=== PATIENT | female | born 2000 | race Caucasian/White ===

== ENCOUNTER 2018-02-17 15:19 | Emergency (ER) | payer OTHER ==
[2018-02-17 15:54] VITALS: BP 122/64
--- NOTE | 2018-02-17 16:13 | UC ---
Lower Extremity/Ankle HPI - HPI Summary HPI Summary: 17-year-old woman comes in with a complaint of left ankle pain. Pain started 2 months ago when she injured it. It did improve but then it has stayed persistent. Pain is worse with movement she is able to bear weight. Pain is better with rest. No prior surgery to that ankle. - History of Current Complaint Chief Complaint: UCLowerExtremity Stated Complaint: ANKLE INJURY Time Seen by Provider: 02/17/18 16:04 Hx Last Menstrual Period: 01/18/18 Pain Intensity: 4 - Allergies/Home Medications Allergies/Adverse Reactions: Allergies Allergy/AdvReac Type Severity Reaction Status Date / Time No Known Allergies Allergy Verified 02/17/18 15:54 Home Medications: Home Medications NK [No Home Medications Reported] 02/17/18 [History Confirmed 02/17/18] PMH/Surg Hx/FS Hx/Imm Hx Previously Healthy: Yes - Surgical History Surgical History: None Surgery Procedure, Year, and Place: tonsils - Family History Known Family History: Positive: Unknown - Social History Alcohol Use: Occasionally Substance Use Type: None Smoking Status (MU): Never Smoked Tobacco Review of Systems Constitutional: Negative Skin: Negative Eyes: Negative ENT: Negative Respiratory: Negative Cardiovascular: Negative Gastrointestinal: Negative Motor: Negative Neurovascular: Negative Musculoskeletal: Other: - SEE HPI Neurological: Negative Psychological: Negative Is Patient Immunocompromised?: No All Other Systems Reviewed And Are Negative: Yes Physical Exam Triage Information Reviewed: Yes Appearance: Well-Appearing, No Pain Distress, Well-Nourished Vital Signs: Initial Vital Signs Temp 98.5 F 02/17/18 15:48 Pulse 78 02/17/18 15:48 Resp 18 02/17/18 15:48 BP 122/64 02/17/18 15:48 Pulse Ox 100 02/17/18 15:48 Vital Signs Reviewed: Yes Eye Exam: Normal Eyes: Positive: Conjunctiva Clear Neck exam: Normal Neck: Positive: Supple Respiratory: Positive: No respiratory distress Musculoskeletal: Positive: Other: - Left ankle is tender to palpation over the distal fibula. There is no erythema there is no swelling. Achilles tendon is intact with mild tenderness to palpation. Foot is nontender to palpation. Neurological Exam: Normal Neurological: Positive: Alert, Muscle Tone Normal Psychological Exam: Normal Psychological: Positive: Age Appropriate Behavior Skin Exam: Normal Lower Extremity Course/Dx - Course Course Of Treatment: Order Information: ANKLE LEFT 3+VWS. Accession Number: [id number]. CPT: 69837. Indication: Left ankle injury. 3 views of left ankle demonstrates no fracture. No other bone or joint abnormality is. noted. IMPRESSION: No fracture of the left ankle is noted. . <Electronically signed by Bharti Hawkins MD in [place]> 02/17/18 [id number]. I discussed the x-ray reports with the patient. At this time she declines an Taras wrap and gel splint and crutches. We discussed exercise and range of motion for the ankle. The overall plan is to have his follow-up with sports medicine to determine need for physical therapy or any further imaging or tests. - Differential Dx/Diagnosis Provider Diagnoses: LEFT ANKLE PAIN Discharge - Sign-Out/Discharge Documenting (check all that apply): Patient Departure All imaging exams completed and their final reports reviewed: Yes - Discharge Plan Condition: Stable Disposition: HOME Patient Education Materials: Ankle Sprain (ED) Referrals: [facility] [Primary Care Provider] - Eddi Otto [Medical Doctor] - Elie Donovan MD [Medical Doctor] - Additional Instructions: FOLLOW UP WITH SPORTS MEDICINE IF NOT COMPLETELY IMPROVED. GET RECHECKED FOR ANY WORSENING OF YOUR CONDITION OR QUESTIONS OR CONCERNS. - Billing Disposition and Condition Condition: STABLE Disposition: Home
--- NOTE | 2018-02-17 16:29 | RAD ---
Indication: Left ankle injury. 3 views of left ankle demonstrates no fracture. No other bone or joint abnormality is noted. IMPRESSION: No fracture of the left ankle is noted.
== END 2018-02-17 17:25 | disposition home or self-care (01) ==
LOC: UCEAST 15:19
DX: M25.572 Pain in left ankle and joints of left foot (principal)
CPT/HCPCS: 99201; G0463